=== PATIENT | male | born 1955 | race African-American/Black ===

== ENCOUNTER 2024-03-10 06:18 | Emergency (ER) | payer MEDICARE, MEDICAID ==
[~2024-03-10] VITALS: Ht 175.3 cm; Wt 91.0 kg
[2024-03-10 06:27] VITALS: TEMP 97.9; O2SAT 95
[2024-03-10 08:39] LABS: BASOPHILS % 0.7 % (0.0-2.0); EOSINOPHILS % 1.1 % (0.0-5.0); HEMATOCRIT. 33.5 % (42.0-52.0); LYMPHOCYTES % 13.9 % (20.0-50.0); MEAN CORPUSCULAR HEMOGLOBIN 27.1 pg (28.0-32.0); MEAN CORPUSCULAR HGB CONC 32.9 g/dL (31.0-37.0); MEAN CORPUSCULAR VOLUME 82.3 fL (80.0-94.0); MEAN PLATELET VOLUME 9.5 fl (7.4-10.4); MONOCYTES % 5.9 % (2.0-8.0); NEUTROPHILS % 78.4 % (40.0-76.0); PLATELET 172 x1000/uL (130-400); RED BLOOD CELL COUNT 4.08 mill/uL (4.7-6.1); RED CELL DISTRIBUTION WIDTH 16.2 % (11.6-14.6); WHITE BLOOD COUNT 8.1 x1000/uL (4.5-11.0)
[2024-03-10] MEDS: CLONIDINE 0.1MG TABLET PO NR (08:47)
[2024-03-10] MEDS: FUROSEMIDE 40MG/4ML VIAL IVP NR (08:47)
[2024-03-10 09:08] LABS: ALANINE AMINOTRANSFERASE 15 IU/L (10-49); ALBUMIN 3.8 g/dL (3.2-4.8); ASPARTATE AMINOTRANSFERASE 18 IU/L (<34); BILIRUBIN TOTAL 0.7 mg/dL (0.1-1.0); CALCIUM 8.5 mg/dL (8.7-10.4); CARBON DIOXIDE 29 mEq/L (21-32); CHLORIDE 106 mEq/L (98-107); CREATININE 1.6 mg/dL (0.6-1.3); GLUCOSE 212 mg/dL (70-105); POTASSIUM 4.4 mEq/L (3.5-5.1); PROTEIN TOTAL 7.6 g/dL (6.0-8.3); SODIUM 139 mEq/L (136-145); TROPONIN I HIGH SENSITIVITY 19 ng/L (3.0-53); UREA NITROGEN BLOOD 20 mg/dL (9-23)
[2024-03-10 09:47] LABS: BG BASE EXCESS -0.3 mmol/L (-2.0-2.0); BG DEOXYHEMOGLOBIN 10.1 % (0.0-5.0); BG FRACTION INSPIRED OXYGEN 21; BG HCO3 ACT 26.1 mmol/L (22.0-26.0); BG OXYGEN SATURATION 89.8 % (92.0-98.5); BG OXYHEMOGLOBIN 88.9 % (94.0-97.0); BG PCO2 50.1 mmHg (35.0-45.0); BG PH 7.335 (7.350-7.450); BG PO2 62.6 mmHg (75.0-100.0); BG SAMPLE SITE LEFT BRACHIAL; BG TOTAL HEMOGLOBIN 12.2 g/dL (12.0-18.0); BG VENT MODE ROOM AIR
[2024-03-10 11:05] LABS: TROPONIN I HIGH SENSITIVITY 21 ng/L (3.0-53)
[2024-03-10] MEDS ORDERED: LISI10TA26 MT (12:43)
[2024-03-10 13:21] VITALS: BP 177/103; PULSE 80; RESP 16
== END 2024-03-10 13:29 | disposition home or self-care (01) ==
LOC: ER 06:18
DX: I16.0 Hypertensive urgency (principal); Z91.148 Patient's other noncompliance with medication regimen for other reason; Z20.822 Contact with and (suspected) exposure to COVID-19
CPT/HCPCS: 99285; 96374; 71045; 87426; 80053; 83880; 85025; 84484; 36415; 82805; 82375; 93005; 36600; J1940

== ENCOUNTER 2024-04-02 20:36 | Emergency (ER) | payer MEDICARE, MEDICAID ==
[~2024-04-02] VITALS: Ht 172.7 cm; Wt 91.0 kg
[~2024-04-02 20:36] MED LIST: LISI10TA26 MT
[2024-04-02 21:06] VITALS: TEMP 97.8; O2SAT 97
[2024-04-02 23:04] LABS: BASOPHILS % 0.8 % (0.0-2.0); EOSINOPHILS % 2.5 % (0.0-5.0); HEMATOCRIT. 32.3 % (42.0-52.0); HEMOGLOBIN. 10.7 g/dL (14.0-18.0); LYMPHOCYTES % 19.8 % (20.0-50.0); MEAN CORPUSCULAR HEMOGLOBIN 27.2 pg (28.0-32.0); MEAN CORPUSCULAR VOLUME 82.5 fL (80.0-94.0); MEAN PLATELET VOLUME 9.3 fl (7.4-10.4); NEUTROPHILS % 67.9 % (40.0-76.0); PLATELET 210 x1000/uL (130-400); RED BLOOD CELL COUNT 3.92 mill/uL (4.7-6.1); RED CELL DISTRIBUTION WIDTH 15.4 % (11.6-14.6); WHITE BLOOD COUNT 7.2 x1000/uL (4.5-11.0)
[2024-04-02 23:10] LABS: CHLORIDE 105 mEq/L (98-107); POTASSIUM 4.1 mEq/L (3.5-5.1); SODIUM 137 mEq/L (136-145)
[2024-04-02 23:11] LABS: CALCIUM 9.2 mg/dL (8.7-10.4); CARBON DIOXIDE 27 mEq/L (21-32)
[2024-04-02 23:16] LABS: CREATININE 1.6 mg/dL (0.6-1.3); GLUCOSE 176 mg/dL (70-105); UREA NITROGEN BLOOD 20 mg/dL (9-23)
[2024-04-02 23:17] LABS: TROPONIN I HIGH SENSITIVITY 15 ng/L (3.0-53)
[2024-04-02] MEDS ORDERED: CETI5TAB5 MT (23:38)
[2024-04-03 00:26] VITALS: BP 207/121; PULSE 91; RESP 15
== END 2024-04-03 00:31 | disposition home or self-care (01) ==
LOC: ER 20:36
DX: R06.02 Shortness of breath (principal); E11.9 Type 2 diabetes mellitus without complications; I10 Essential (primary) hypertension
CPT/HCPCS: 36415; 71045; 80048; 84484; 85025; 99284

== ENCOUNTER 2024-11-12 02:35 | Emergency (ER) | payer MEDICARE, MEDICAID ==
[~2024-11-12] VITALS: Ht 172.7 cm; Wt 97.3 kg
[~2024-11-12 02:35] MED LIST changes: +CETI5TAB5 MT
[2024-11-12 02:41] VITALS: BP 163/96; O2SAT 100; O2SAT 95
[2024-11-12 03:15] VITALS: TEMP 98.6
[2024-11-12] MEDS: ACETAMINOPHEN 650MG/20.3ML UDC PO ONE (03:15)
[2024-11-12] MEDS: ONDANSETRON HCL 4MG TABLET PO ONE (05:38)
[2024-11-12 06:11] LABS: BASOPHILS % 0.3 % (0.0-2.0); DIFFERENTIAL COMMENT 0; EOSINOPHILS % 0.4 % (0.0-5.0); HEMOGLOBIN. 11.5 g/dL (14.0-18.0); LYMPHOCYTES % 11.8 % (20.0-50.0); MEAN CORPUSCULAR HEMOGLOBIN 25.6 pg (28.0-32.0); MEAN CORPUSCULAR HGB CONC 32.9 g/dL (31.0-37.0); MEAN CORPUSCULAR VOLUME 77.8 fL (80.0-94.0); MEAN PLATELET VOLUME 9.8 fl (7.4-10.4); MONOCYTES % 5.9 % (2.0-8.0); NEUTROPHILS % 81.6 % (40.0-76.0); PLATELET 232 x1000/uL (130-400); RED CELL DISTRIBUTION WIDTH 18.2 % (11.6-14.6); WHITE BLOOD COUNT 8.8 x1000/uL (4.5-11.0)
[2024-11-12 06:16] LABS: POTASSIUM 4.2 mEq/L (3.5-5.1)
[2024-11-12 06:17] LABS: CALCIUM 9.7 mg/dL (8.7-10.4)
[2024-11-12 06:23] LABS: CREATININE 2.5 mg/dL (0.6-1.3)
[2024-11-12 06:28] VITALS: PULSE 92; RESP 18
[2024-11-12] MEDS ORDERED: ONDA-239 PO (06:33)
== END 2024-11-12 07:00 | disposition home or self-care (01) ==
LOC: ER 02:35
DX: J03.90 Acute tonsillitis, unspecified (principal); B34.9 Viral infection, unspecified; E11.9 Type 2 diabetes mellitus without complications; I10 Essential (primary) hypertension; Z79.899 Other long term (current) drug therapy
CPT/HCPCS: 99283; 80048; 87430; 85025; 87070; 36415; Q0162